=== PATIENT | male | born 1990 | race Caucasian/White ===

== ENCOUNTER 2018-03-02 17:49 | Emergency (ER) | payer OTHER ==
[~2018-03-02] VITALS: Ht 185.4 cm; Wt 117.6 kg
[2018-03-02 17:51] VITALS: BP 141/102
[2018-03-02] MEDS ORDERED: IBUPROFEN 200 MG TABLET ONE (19:10)
[2018-03-02] MEDS ORDERED: IBUPROFEN 200 MG TABLET PO ONE (19:30)
== END 2018-03-02 19:17 | disposition home or self-care (01) ==
LOC: ED 19:11
DX: S43.421A Sprain of right rotator cuff capsule, initial encounter (principal); X58.XXXA Exposure to other specified factors, initial encounter; Y93.89 Activity, other specified; Y92.89 Other specified places as the place of occurrence of the external cause; Y99.8 Other external cause status
CPT/HCPCS: 99284